=== PATIENT | female | born 1970 | race Hispanic/Latino ===

== ENCOUNTER 2017-10-21 11:47 | Emergency (ER) | payer OTHER ==
[~2017-10-21] VITALS: Ht 152.4 cm; Wt 59.9 kg
[2017-10-21] MEDS ORDERED: MULTIVITAMINS1 EAC9 PO (12:05)
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
[2017-10-21] MEDS ORDERED: CYCLOBENZAPRINE10 M1 PO (14:16)
[2017-10-21] MEDS ORDERED: IBUPROFEN400 M1 PO (14:16)
[2017-10-21 14:20] VITALS: BP 106/68
== END 2017-10-21 14:31 ==
LOC: ERH 11:47
DX: M43.6 Torticollis (principal)
CPT/HCPCS: 72050